=== PATIENT | female | born 2000 | race Caucasian/White ===

== ENCOUNTER 2020-12-18 10:51 | Outpatient (REF) | payer OTHER, SELFPAY ==
[2020-12-18 12:08] LABS: COVID-19 Test Negative (Negative)
== END 2020-12-18 10:52 | disposition home or self-care (01) ==
LOC: HO.EMPCOV 10:51
PROVIDERS: Absent Provider Internal Medicine; PCP Pediatrics; Visit Provider Internal Medicine
DX: Z20.822 Contact with and (suspected) exposure to COVID-19 (principal)
CPT/HCPCS: 36415; 87635

== ENCOUNTER 2021-06-29 15:38 | Outpatient (REF) | payer OTHER, SELFPAY ==
[2021-06-29 16:29] LABS: Influenza A PCR NEGATIVE (Negative); Influenza B PCR NEGATIVE (Negative); Resp Syncy Virus RNA Qual PCR NEGATIVE (Negative); SARS COV2 PCR INHOUSE NEGATIVE (Negative)
== END 2021-06-29 15:39 | disposition home or self-care (01) ==
LOC: HO.LAB 15:38
PROVIDERS: Visit Provider Emergency Medicine
DX: Z20.822 Contact with and (suspected) exposure to COVID-19 (principal)
CPT/HCPCS: 0241U

== ENCOUNTER 2021-07-01 09:45 | Outpatient (REF) | payer OTHER, SELFPAY ==
[2021-07-01 10:43] LABS: Influenza A PCR NEGATIVE (Negative); Influenza B PCR NEGATIVE (Negative); Resp Syncy Virus RNA Qual PCR NEGATIVE (Negative); SARS COV2 PCR INHOUSE NEGATIVE (Negative)
== END 2021-07-01 09:46 | disposition home or self-care (01) ==
LOC: HO.LAB 09:45
PROVIDERS: PCP Pediatrics; Visit Provider Physician Assistant
DX: R53.81 Other malaise (principal); Z20.822 Contact with and (suspected) exposure to COVID-19
CPT/HCPCS: 0241U

== ENCOUNTER 2021-09-22 11:18 | Outpatient (REF) | payer OTHER, SELFPAY ==
--- NOTE | ~2021-09-22 | XR_ITS ---
EXAMINATION: XR FOOT, RIGHT CLINICAL INFORMATION: Swelling and pain COMPARISON: None TECHNIQUE: AP, lateral, and oblique views of the right foot. FINDINGS: The bones and soft tissues are normal. No fracture. Alignment is anatomic. Joint spaces are maintained. XR/XR foot RT min 3V IMPRESSION: Unremarkable right foot.
== END 2021-09-22 11:19 | disposition home or self-care (01) ==
LOC: HO.XRAY 11:18
PROVIDERS: Visit Provider Physician Assistant
DX: R60.0 Localized edema (principal); M79.671 Pain in right foot
CPT/HCPCS: 73630

== ENCOUNTER 2022-07-01 10:37 | Outpatient (REF) | payer OTHER, SELFPAY ==
[2022-07-01 11:45] LABS: Influenza A PCR POSITIVE (Negative); Influenza B PCR NEGATIVE (Negative); Resp Syncy Virus RNA Qual PCR NEGATIVE (Negative); SARS COV2 PCR INHOUSE NEGATIVE (Negative)
== END 2022-07-01 10:38 | disposition home or self-care (01) ==
LOC: HO.LAB 10:37
PROVIDERS: Visit Provider Nurse Practitioner Family
DX: Z20.822 Contact with and (suspected) exposure to COVID-19 (principal); R05.9 Cough, unspecified
CPT/HCPCS: 0241U

== ENCOUNTER 2024-09-23 08:36 | Emergency (ER) | payer OTHER, SELFPAY ==
--- NOTE | ~2024-09-23 | XR_ITS ---
CLINICAL HISTORY: pain unable to put weight 3 view right knee Comparison: None Findings: Along the posterior aspect of the proximal fibula, there is smooth periosteal reaction/beginnings of what appear to be bony callus formation. Fracture lucency is not seen although this raises the possibility of bony reparative changes related to a nondisplaced healing fracture at this site. Is there a history of a recent or subacute timing injury? Correlation is recommended. No significant arthritic change or erosions. No joint effusion. No radiopaque foreign body. IMPRESSION: Along the posterior aspect of the proximal fibula, there is smooth periosteal reaction/beginnings of what appear to be bony callus formation. Fracture lucency is not seen although this raises the possibility of bony reparative changes related to a nondisplaced healing fracture at this site. Is there a history of a recent or subacute timing injury? Correlation is recommended. This document has been electronically signed by: Norma Jesus MD on 09/23/2024 10:24:52
[2024-09-23 08:39] VITALS: BP 132/75; PULSE 75; RESP 16; TEMP 36.4; O2SAT 100; BMI 22.2
--- NOTE | 2024-09-23 08:39 | ED_ITS ---
HPI - General Adult General Chief complaint: Extremity Problem Stated complaint: R knee injury Time Seen by Provider: 09/23/24 08:39 Source: patient Mode of arrival: ambulatory Limitations: no limitations History of Present Illness ED Provider: Shauna Yates PA-C HPI narrative: Patient is a 24 year old assigned female at with no reported medical history presenting to the emergency department today with right knee pain. Patient states that she had a right knee injury 4 years ago that resolved, a few days ago she went running 4 miles and began to have right knee pain. States that she rested the knee and then yesterday ran a 10k and now her right knee is in significant pain. Patient denies any dizziness, lightheadedness, abdominal pain, nausea, vomiting, fever, chills, blurry vision, double vision, loss of vision, chest pain, difficulty breathing, shortness of breath, back pain, night sweats, pain with urination, increased urinary frequency, increased urinary urgency, blood in her urine or stool, syncope or a near syncopal episode, bowel incontinence, bladder incontinence, or any other complaints at this time. Relieving factors: immobilization Exacerbating factors: movement Associated symptoms: denies other symptoms Treatments prior to arrival: other (knee brace) Related Data Allergies Allergy/AdvReac Type Severity Reaction Status Date / Time sulfamethoxazole Allergy Rash Verified 09/23/24 08:42 [From Bactrim] trimethoprim [From Bactrim] Allergy Rash Verified 09/23/24 08:42 Review of Systems Constitutional: Constitutional: Reports no additional constitutional complaints, Denies chills, Denies fever(s) and Denies night sweats Eyes: Eyes: Reports no additional eye complaints, Denies blurry vision, Denies change in vision, Denies diplopia, Denies eye discharge, Denies loss of vision and Denies eye pain ENT: Denies dizziness Cardiovascular: Cardiovascular: Reports no additional cardiovascular complaints, Denies chest pain, Denies lightheadedness, Denies Loss of Consciousness and Denies dyspnea Respiratory: Respiratory: Reports no additional respiratory complaints and Denies dyspnea Gastrointestinal: Gastrointestinal: Reports no additional gastrointestinal complaints, Denies abdominal pain, Denies melena, Denies hematochezia, Denies change in bowel habits and Denies change in stool character Genitourinary: Genitourinary: Denies hematuria, Denies urinary frequency, Denies dysuria, Denies urinary incontinence, Denies urinary hesitancy and Denies urinary urgency Musculoskeletal: Musculoskeletal: Reports no additional musculoskeletal complaints, Denies numbness and Denies tingling Comments: right knee pain Neurologic: Denies dizziness, Denies loss of vision, Denies numbness and Denies tingling Psychiatric: Psychiatric: Reports no additional psychiatric complaints Endocrine: Endocrine: Reports no additional endocrine complaints Hematologic/Lymphatic: Hematologic/Lymphatic: Reports no additional hematologic/lymphatic complaints Allergic/Immunologic: Allergic/Immunologic: Reports no additional allergic/immunologic complaints PMFSH Past Medical History Attestation statement: The following information was validated with the patient. Source: old records reviewed and nursing notes reviewed Social History Social History Advance Directives: No Advance Directives Information Provided: Yes Physical Exam ED Vital Signs: Vital Signs - 24 hr 09/23/24 08:39 09/23/24 10:22 Temperature 97.6 F 97.6 F Pulse Rate 75 75 Respiratory Rate 16 16 Blood Pressure 132/75 132/75 Pulse Oximetry 100 100 Oxygen Delivery Method Room Air Room Air BMI result Body Mass Index 22.2 Const General: cooperative, no acute distress, alert and awake Nutritional Appearance: well nourished Orientation/consciousness: patient oriented x3 Limitations: no limitations HENMT Head: Yes normal to inspection and Yes atraumatic Ears: hearing grossly normal bilaterally and external ears normal General nose exam: Normal external nose present, no nasal discharge noted and no epistaxis Face and sinus: Yes normal facial exam, No abrasion and No laceration Mouth: Normal oral and palatal mucosa present, no drooling and no muffled voice Eyes General: appearance normal, both eyes and all related structures Periorbital: periorbital findings normal Eyelids: Yes eyelids normal Conjunctivae: conjunctivae normal Pupils: Equal, round and reactive pupils present EOM: EOMs intact bilaterally Neck Neck: Yes normal visual inspection, Yes full ROM and Yes no lymphadenopathy Chest Chest palpation & inspection: normal inspection of the chest Resp Effort & Inspection: normal respiratory effort and able to speak in complete sentences GI Inspection: Yes normal to inspection Neuro General: patient oriented x3, moves all extremities and CN's II-XI intact bilaterally Cranial nerves: Yes Equal, round and reactive pupils present Cognition (Neuro): normal cognition Extrem Other: Right knee ROM painful Negative anterior + posterior drawer testes No pain with varus + valgus stress Minimal pain with palpation along the lateral right knee / IT band General: Yes normal to inspection, Yes full ROM and Yes capillary refill normal Psych Appearance: grossly normal Mental Status: mental status grossly normal Affect: normal affect Attitude: cooperative Thought process: Normal thought process present Thought content: Normal thought content present Insight: Good insight present (Psych) Medications Administered Discontinued Medications Generic Name Dose Route Start Last Admin Trade Name Claudia PRN Reason Stop Dose Admin Ketorolac Tromethamine 15 mg 09/23/24 08:57 09/23/24 09:02 Ketorolac Tromethamine 15 Mg/Ml Vial IM 09/23/24 08:58 15 mg ONCE ONE Administration Medical Decision Making Medical Decision Making [facility] Narrative: Patient is a 24 year old assigned female at with no reported medical history presenting to the emergency department today with right knee pain. Patient's physical exam was as noted in the physical exam portion of this note. Patient's right knee x-ray showed no acute process. Patient's clinical presentation is most consistent with IT band pain vs. meniscus injury vs. knee sprain. I explained my physical exam findings as well as all test results to the patient. I answered all questions asked by the patient. Patient was given crutches with crutch instructions and demonstrated proper ability to use them while in the department. I stressed the importance of the patient taking her medication as directed (either prescribed or as the over the counter packaging recommends). I stressed the importance of the patient following up with her primary care provider and an orthopedic provider. I stressed the importance of the patient returning to the emergency department immediately if her symptoms were to worsen or if she were to develop any dizziness, shortness of breath, difficulty breathing, chest pain, blurry vision, loss of vision, nausea, vomiting, abdominal pain, fever, chills, back pain, or any other complaints. Patient verbalized agreement and understanding with this treatment plan and discharge. Differential Diagnosis Differential Diagnoses: The differential diagnosis associated with the presentation includes Right knee pain Right knee sprain Right meniscus injury Right IT band syndrome Admission/Observation Consideration of admission/observation: Escalation of care including admission/observation considered Patient would have been admitted to the hospital had her work up had any findings where hospital admission was appropriate and her clinical presentation warranted hospital admission. Independent Interpretation I performed an independent interpretation of an: Plain X-Ray Interpretation: My interpretation is in agreement with the radiologist's impression of this imaging study. CLINICAL HISTORY: pain unable to put weight 3 view right knee Comparison: None Findings: Along the posterior aspect of the proximal fibula, there is smooth periosteal reaction/beginnings of what appear to be bony callus formation. Fracture lucency is not seen although this raises the possibility of bony reparative changes related to a nondisplaced healing fracture at this site. Is there a history of a recent or subacute timing injury? Correlation is recommended. No significant arthritic change or erosions. No joint effusion. No radiopaque foreign body. IMPRESSION: Along the posterior aspect of the proximal fibula, there is smooth periosteal reaction/beginnings of what appear to be bony callus formation. Fracture lucency is not seen although this raises the possibility of bony reparative changes related to a nondisplaced healing fracture at this site. Is there a history of a recent or subacute timing injury? Correlation is recommended. This document has been electronically signed by: Norma Jesus MD on 09/23/2024 10:24:52 Dictated By: Norma Jesus MD Signed By: Electronically signed by Norma Jesus MD 09/23/24 1025 Radiology Impression Discussion of test interpretation with radiology: I have reviewed the r adiologist's reading. Discharge Plan Discharge Clinical Impression: Right knee sprain Patient Disposition: Home, Self-Care Instructions: Knee Sprain (DC), Crutch Instructions (ED) Additional Instructions: Your exam is most consistent with a sprain vs. meniscus injury vs. IT band overuse. Continue using your OTC brace and crutches as needed. Follow up with your primary care provider and the orthopedic team. Return to the emergency department immediately if your symptoms worsen or if you develop any numbness, tingling, dizziness, shortness of breath, difficulty breathing, chest pain, blurry vision, loss of vision, nausea, vomiting, abdominal pain, fever, chills, back pain, or any other complaints. Please see the information below about our Patient Portal. If you are not yet enrolled in the [facility] Patient Portal, you will receive an enrollment email invitation following your visit to any [facility] setting. You may also self-enroll in the Patient Portal by visiting our website: [email or web address] The following information is required to access the Patient Portal: - Your [facility] Medical Record Number - Your personal home email address (must match what is in your electronic medical record, Registration staff can assist with this) - Name - Date of Capabilities of the Patient Portal: - Message some providers - View upcoming appointments - Access your health summary, medical history, and visit history - View current conditions and allergies - View procedure and lab results - View your medications, including guidelines, side effects, and precautions - Complete pre-appointment questionnaires requested by your provider - Ready summary reports of your office visits and procedures To access the Patient Portal Mobile Lynne, follow these directions: - Search in[employer]Depth in the [employer] Store or [employer] Store - Download the Lynne - Search for [facility] - Enter your login/password Referrals: [facility] Family Medicine [Provider Group] (Call to establish and follow up with a primary care provider. If you already have a primary care provider, please f ollow up with them.) [facility] Primary [facility], [place] [Provider Group] (Call to establish and follow up with a primary care provider. If you already have a primary care provider, please follow up with them.) [facility],[place] [Provider Group] (Call to establish and follow up with a primary care provider. If you already have a primary care provider, please follow up with them.) [facility] [Provider Group] (Call to establish and follow up with a primary care provider. If you already have a primary care provider, please follow up with them.) [facility] Orthopedic Surgeons [Provider Group] (Call to establish and follow up with the orthopedic team. ) Interventions: ED Discharge Assessment Last Done: 09/23/24 10:22 Discharge Date/Time: 09/23/24 10:23 Print Language: Indian
[2024-09-23] MEDS: Ketorolac Tromethamine 15 MG/ML VIAL IM (09:02)
--- OUTSIDE RECORDS SUMMARY | 2024-09-23 09:12 | XMS_ITS | Clinical Summary ---
Author Organization [facility] Address [address] [place] [id number] Phone Care Team Providers Care Warehouse Material Handler Name Role Phone Cooper Acevedo MD Primary Care Provider [phone] Allergies No known active allergies Medications Clindamycin Phos-Benzoyl Perox gel APPLY TOPICALLY TO ACNE ON FACE QAM 1 9 Active CLINDAMYCIN-BENZO YL PER-CLEANS EX Act hosea LILETTA, 52 MG, 19.5 MCG/DAY intrauterine device 0 9 Active tretinoin 0.025 % cream APPLY A PEA-SIZED AMOUNT TO FACE Q OTHER NIGHT WORKING UP TO NIGHTLY TOLERATED 2 9 Active Immunizations Immunization Administration Dates Next Due DTaP 5 02/18/2004, 1,1999,06/16,1999 HPV, Quadrivalent 09/13/2013,05/10/2013,03/09/20 13 Hep A, ped/adol 04/15/2016,03/29/2014 Hep B, ped/adol 08/24/2000,03/02/2000,1999 Hib (PRP-T) 05/25/2000, 0,1999,04/17 IPV 02/18/2004, 1,1999,04/17 Influenza, injectable, quadr ivalent, preservative free 04/15/2016 Influenza, intranasal, quadrivalent 04/02/2015,0 03/29/2014 MMR 02/18/2004,03/02/2000 Meningococcal Conj (Menactra) MCV4P 04/15/2016,0 08/07/2010 Pneumococcal Conjugate 05/25/2000,03/02/2000 Tdap 08/07/2010 Varicella 08/07/2010,03/02/2000 Family History Medical History Relation Name Comments No Known Problems Father No Known Problems Maternal Grandfather No Known Problems Maternal Grandmother No Known Problems Mother No Known Problems Paternal Grandfather No Known Problems Paternal Grandmother No Known Problems Sister Relation Name Status Comments Father Maternal Grandfather Maternal Grandmother Mother Paternal Grandfather Paternal Grandmother Sister Social History Tobacco Use Types Packs/Day Years Used Date Smoking Tobacco: Never Comments:Never Smoker Alcohol Use Standard Drinks/Week Comments No 0 (1 standard drink = 0.6 oz pur e alcohol) Hunger/Food Answer Date Recorded In the last 12 months, did y ou or your family ever eat less than you felt you should because there wasn't enough money for food? No 12/22/2019 Stable Housing Answer Date Recorded Are you worried that in the next 2 months you may not have stable housing? No 12/22/2019 Transportation Concerns Answer Date Rec orded In the last 12 months, have you or your family ever had to go without healthcare because you didn't have a way to get there? No 12/22/2019 Hazards in Home Answer Date Recorded Think about the place you li ve. Do you have problems with any of the following? Pests (mice or roaches), mold, no/not working smoke detectors, water leaks, no window guards. No 2019 Financing Utilities Answer Date Recorde d In the last 12 months, has t he electric, gas, oil, or water company threatened to shut off your services in your home? No 12/22/2019 Safety at Home Answer Date Recorded Are you or your family worried about feeling saf e in your home? No 12/22/2019 Outside Support Answer Date Recorded Do you feel that you need mo re support from other people or programs to help you care for yourself or your family? No 12/22/2019 Understanding Health Concerns Answer Da te Recorded Do you need help understandi ng your or your child's healthcare needs (diagnosis, medications, plan, etc.)? No 12/22/2019 Financing Health Concerns Answer Date R ecorded In the last 12 months, was t here a time when your child needed to see a doctor or get medications or supplies but could not because of cost? No 12/22/2019 Missing School or Work Answer Date Phil rded Did you or your child miss s chool or work because of a health problem that could have been avoided? No 12/22/2019 Comments Unknown Sex and Gender Information Value Date Recorded Sex Assigned at Not on file Legal Sex Female 6:34 PM EDT Gender Identity Not on file Sexual Orientation Straight 12/24/2019 9: 34 AM EDT Last Filed Vital Signs Vital Sign Reading Time Taken Comments Blood Pressure 110/70 12/21/2018 4:43 PM EDT Pulse 72 12/21/2018 4:43 PM EDT Temperature 36.6 ??C (97.8 ??F) 12/21/2018 4:43 PM ED T Respiratory Rate - - Oxygen Saturation - - Inhaled Oxygen Concentration - - Weight 67.4 kg (148 lb 11.2 oz) 12/21/2018 4:43 PM EDT Height 167 cm (5' 5.75 ) 12/21/2018 4:43 PM EDT Body Mass Index 24.18 12/21/2018 4:43 PM EDT Plan of Treatment Health Maintenance Due Date Last Done Comments DTaP,Tdap,and Td Vaccines (7 - Td or Tdap) 08/07/2020 08/07/2010, 02/18/2004, 08/24/2000, Additional history exists Influenza Vaccines (#1) 2024 04/10/20, 04/15/2016, 04/02/2015, Additional history exists COVID-19 Vaccine ( season) 2024 05/18/2021, 09/20/2020, 08/23/2020 HIB Vaccines Completed 05/25/2000, 08/04, 1999, Additional history exists Pneumococcal Vaccine Completed 05/25/2000, 03/02/20 Hepatitis B Vaccines Completed 08/24/2000, 03/02/2000, 1999 IPV Vaccines Completed 02/18/2004, 08/05, 1999, Additional history exists MMR Vaccines Completed 02/18/2004, 03/02/2000 Varicella Vaccines Completed 08/07/2010, 03/02/2000 HPV Vaccines Completed 09/13/2013, 01/2013, 03/09/2013 Hepatitis A Vaccines Completed 04/15/2016, 03/29/20 14 Meningococcal Vaccine Completed 04/15/2016, 011 Men B Vaccine Aged Out No longer elig macariole based on patient's age to complete this topic Procedures * Due to [place] law, this organization might not be sharing sensitive test results. Procedure Name Priority Date/Time Associated Diagnosis Comments CHLAMYDIA AND GONORRHEA, AMPLIFIED Routine 12/21/2018 4:56 PM EDT Well adult exam from Last 3 Months or Most Recently Relevant to Health Maintenance Results * Due to [place] law, this organization might not be sharing sensitive test results. * Chlamydia and Gonorrhea, Amplified (12/21/2018 4:56 PM EDT) Chlamydia Trachomatis, DNA Probe NEGATIVE (NEG) [facility] Comment: No Chlamydia Trachomatis RNA detected in this patient's sample ? (REFERENCE RANGE/NORMAL VALUE: NOT DETECTED) ? Note: This test uses optomechanical engineer- mediated amplification method to detect rRNA from C. Trachomatis URINE GC AMP PROBE NEGATIVE (NEG) [facility] Comment: No Neisseria Gonorrhoeae RNA detected in this patient's sample ? (REFERENCE RANGE/NORMAL VALUE: NOT DETECTED) ? NOTE: This test uses optomechanical engineer-mediated amplification method to detect rRNA from N.Gonorrhoeae. A negative result does not preclude infection. In the case of a negative urine result, testing of an endocervical(female) or urethral (male) specimen is recommended if there is high clinical suspicion of infection. Due to very high sensitivity of Nucleic Acid Amplification Test, false positive results may occur. Therefore, specimen handling is extremely important. In patients in whom the disease is unlikely, additional sample for testing should be considered after an initial positive result. The performance characteristics of this test have not been evaluated in children. The Aptima Combo2 assay is not intended for the evaluation of suspected sexual abuse or for other medico-legal indications. The ordering provider should assess if the patient had consensual sex without risk of sexual abuse. Consult the [facility] if needed. Contact phone number . Therapeutic failure or success cannot be determined with the Aptima Combo2 assay since nucleic acid may persist following appropriate antimicrobial therapy. The Centers for Disease Control and Prevention (CDC) recommends confirmatory retesting using culture or a different nucleic acid amplification test when positive results occur, if indicated. Testing performed or reported by [facility], a Service of [facility], [address] [place] [address] Urine 12/21/2018 4:56 PM EDT 12/21/2018 11:19 PM EDT us Ana Rosa Parekh DO LAB MICROBIOLOGY - GENERAL ORDE MIKEL Final Result [facility] from Last 3 Months or Most Recently Relevant to Health Maintenance Insurance [place] [id number] Care Teams Warehouse Material Handler Relationship Specialty Start Date End Date Cooper Acevedo MD [address] [place] [address] [place] [id number] PCP - General 11/09/17
--- OUTSIDE RECORDS SUMMARY | 2024-09-23 09:12 | XMS_ITS | Encounter Summary ---
Author Organization [facility] Address [address] [place] [address] Phone Care Team Providers Care Qc Scientist Name Role Phone Cooper Acevedo MD Primary Care Provider [phone] Encounter Details Date Type Department Care Team (Late st Contact Info) Description 08/10/2012 Conversion Encounter [facility] [address] [place] [address] [place] [address] Social History Tobacco Use Types Packs/Day Years Used Date Smoking Tobacco: Never Comments:Never Smoker Comments Unknown Sex and Gender Information Value Date Recorded Sex Assigned at Not on file Legal Sex Female 6:34 PM EDT Gender Identity Not on file Sexual Orientation Straight 12/24/2019 9: 34 AM EDT documented as of this encounter Plan of Treatment Not on file documented as of this encounter Visit Diagnoses Not on filedocumented in this encounter Care Teams Qc Scientist Relationship Specialty Start Date End Date Cooper Acevedo MD [address] [place] [address] [place] [id number] PCP - General 11/09/17 documented as of this encounter
--- NOTE | 2024-09-23 09:52 | PC.NURSE ---
Pt able to demonstrate correct crutches ambulation. Awaiting consults at this time, Ice given to patient with good effect.
[2024-09-23 10:22] VITALS: BP 132/75; PULSE 75; RESP 16; TEMP 36.4; O2SAT 100
== END 2024-09-23 10:23 | disposition home or self-care (01) ==
PROVIDERS: Emergency Provider Emergency Medicine; PCP Pediatrics
DX: S83.91XA Sprain of unspecified site of right knee, initial encounter (principal); X50.3XXA Overexertion from repetitive movements, initial encounter; Y93.02 Activity, running; Y92.9 Unspecified place or not applicable; Y99.9 Unspecified external cause status; M25.561 Pain in right knee
CPT/HCPCS: 73564; 96372; 99284; J1885

== ENCOUNTER → 2024-09-23 08:45 | Outpatient (BNV) | payer OTHER, SELFPAY | PROVIDERS: Emergency Provider Emergency Medicine; PCP Pediatrics; Visit Provider Radiology Diagnostic Radiology | DX: S82.101D Unspecified fracture of upper end of right tibia, subsequent encounter for closed fracture with routine healing (principal) | CPT/HCPCS: 73564 ==

== ENCOUNTER 2024-09-26 15:27 | Outpatient (AMB) | payer OTHER, SELFPAY ==
--- NOTE | 2024-09-26 15:32 | MHC.PC.OV ---
Vital Signs 09/26/24 15:37 Height 5 ft 6.75 in Weight 137 lb BMI 21.6 BP 102/60 Blood Pressure Location Rt brachial Pulse 56 Pulse Source Pulse Oximeter Temp 98.0 F Pulse Oximetry (%) 100 Intake Visit Reasons: s/p knee injury Intake Note: no other issues Is last menstrual period known: Yes Post menopausal: No Patient : No Allergies sulfamethoxazole [From Bactrim] Allergy (Verified 09/26/24 16:04) Rash trimethoprim [From Bactrim] Allergy (Verified 09/26/24 16:04) Rash Medication List - Last Reconciled 09/26/24 by Chata Burleson PA-C ketorolac 10 mg PO Q8H PFSH Medical History (Updated 09/26/24 @ 16:07 by Chata Burleson PA-C) IUD (intrauterine device) in place History of cyst of breast Establishing care with new doctor, encounter for Atypical syncope Abnormal x-ray of knee Knee injury Social History Patient Tobacco Use Status: Never used Tobacco e-Cigarette/Vaping Use: Never Used Second Hand Smoke Exposure: No Cognitive needs: No Hearing needs: No Vision needs: No Female Reproductive History Menstrual control method: progestin IUCD Questionnaire PHQ-9 Over the last 2 weeks, how often have you been bothered by any of the following problems? 1. Little interest or pleasure in doing things: not at all 2. Feeling down, depressed, or hopeless: not at all 3. Trouble falling or staying asleep, or sleeping too much: not at all 4. Feeling tired or having little energy: not at all 5. Poor appetite or overeating: not at all 6. Feeling bad about yourself - or that you are a failure or have let yourself or your family down: not at all 7. Trouble concentrating on things, such as reading the newspaper or watching television: not at all 8. Moving or speaking so slowly that other people could have noticed. Or the opposite - being so fidgety or restless that you have been moving around a lot more than usual: not at all 9. Thoughts that you would be better off or of hurting yourself in some way: not at all Total score: 0 Depression Screening Interpretation: Negative Depression Screening Done: Yes 12273 - PHQ-9 Billing: Yes Source: Developed by Drs. Juan Bro, Monica Junior, Stone Ortiz and colleagues, with an educational yusuf from [employer]. Thrive Questionnaire I am a: Patient What is your living situation today?: I have a steady place to live Within the past 12 months, did the food you bought not last and you didn't have the money to get more?: Never true Within the past 12 months, did you worry whether your food would run out before you got money to buy more?: Never true Do you have trouble paying for medicines?: No Do you have trouble getting transportation to medical appointments?: No Do you have trouble paying your heating and electricity bill?: No Do you have trouble taking care of your child, family member or friend?: No Do you have trouble with day-to-day activities such as bathing, preparing meals, shopping, managing finances, etc.?: No Are you currently unemployed and looking for a job?: No Are you interested in more education?: No THRIVE Score: 0 AUDIT C Alcohol Use Questionnaire (AUDIT-C) 1. How often do you have a drink containing alcohol?: 2-3 times a week 2. How many drinks containing alcohol do you have on a typical day when you are drinking?: 1 or 2 3. How often do you have six or more drinks on one occasion?: Less than monthly Total Score: 4 Score Reviewed/Action Taken: No LESVIA-7 AMB Questionnaire LESVIA-7 Feeling nervous, anxious, or on edge: 0 = Not at all Not being able to stop or control worryin = Not at all Worrying too much about different things: 0 = Not at all Trouble relaxin = Not at all Being so restless that it is hard to sit still: 0 = Not at all Becoming easily annoyed or irritable: 0 = Not at all Feeling afraid as if something awful might happen: 0 = Not at all Total LESVIA-7 score (0-4 normal; 5-9 mild; 10-14 moderate; 15-21 severe): 0 Source: Developed by Monica Livingston Kurt Kroenke and colleagues, with an educational yusuf from [employer]. LESVIA-7 Assessment Billing LESVIA-7 Assessment Tool: LESVIA-7 Assessment 05314 Physical exam (Primary Care) Vital Signs: Last Vital Signs Temp 98.0 F 09/26/24 15:37 Pulse 56 09/26/24 15:37 BP 102/60 09/26/24 15:37 Pulse Ox 100 09/26/24 15:37 Care Plan Goal for BP management: <130/80 BMI result Body Mass Index 21.6 normal bmi Tobacco/Smoking Status: Tobacco use Status Patient Tobacco Use Status Never used Tobacco 09/26/24 16:10 e-Cigarette/Vaping Use Never Used 09/26/24 16:10 PHQ-9: PHQ-9 Score PHQ-9: Total score 0 09/26/24 16:10 Depression Screening Interpretation: Negative Coding Level of Care Code New Pt Level 4 (51204) Complex EM visit Add On G2211 Diagnoses Establishing care with new doctor, encounter for Z76.89 Abnormal x-ray of knee R93.6 Knee injury S89.90XA IUD (intrauterine device) in place Z97.5 Atypical syncope R55 Additional Codes LESVIA-7 Assessment Billing - LESVIA-7 Assessment Tool: LESVIA-7 Assessment 66123 ([id number]) PHQ-9 - 54426 - PHQ-9 Billing: Yes ([id number]) Assessment & Plan Assessment & Plan (1) Establishing care with new doctor, encounter for: Code(s): Z76.89 - Persons encountering health services in other specified circumstances Category: Medical (2) Abnormal x-ray of knee: Code(s): R93.6 - Abnormal findings on diagnostic imaging of limbs Category: Medical Plan: X-ray findings require MRI analysis to assess any further changes. Coordination with orthopedics is needed for continued management and oversight. (3) Knee injury: Code(s): S89.90XA - Unspecified injury of unspecified lower leg, initial encounter Category: Medical Plan: An MRI is required for further evaluation of possible internal knee injury. Follow-up with orthopedics has been scheduled post-imaging. Prescribed oral Toradol for pain management, avoiding concurrent NSAID use. (4) IUD (intrauterine device) in place: Code(s): Z97.5 - Presence of (intrauterine) contraceptive device Category: Medical Plan: Condition is chronic and stable continue to monitor. (5) Atypical syncope: Code(s): R55 - Syncope and collapse Category: Medical Plan: Patient with atypical syncopal episodes. She has not had 1 in a few years although will get a baseline EKG. If patient develops syncope in the near future she will call us and we will do further workup. Condition is chronic and stable continue to monitor. Plan Plan Patient was informed and verbally consented to the use of an ambient scribe for clinic note documentation during this visit. 1. Knee Joint Pain An MRI is required for further evaluation of possible internal knee injury. Follow-up with orthopedics has been scheduled post-imaging. Prescribed oral Toradol for pain management, avoiding concurrent NSAID use. 2. Allergy status to sulfonamides Documented allergic reaction to Bactrim; future prescriptions will avoid sulfa drugs. 3. Periosteal Reaction Of Fibula X-ray findings require MRI analysis to assess any further changes. Coordination with orthopedics is needed for continued management and oversight. 4. Suspected Meniscal Or Ligament Injury An MRI will clarify suspected meniscal or ligament injury, with a follow-up orthopedic evaluation planned. Therapy adjustments will follow imaging results. 5. Uterine Intrauterine Device Iud Use Current IUD use is effective; patient to discuss potential future removal with gynecology. 6. History Of Breast Cysts No current cyst complaints; previous issues resolved with Bactrim. Monitoring and preventive strategies continued with gynecological support. Discussion Notes During the consultation, I discussed the likely diagnosis of knee joint pain exacerbated by recent physical activity, emphasizing the importance of conducting an MRI for further clarification of suspected meniscal or ligament damage. I detailed the benefits of prompt imaging and orthopedic follow-up to enable effective management and alleviate discomfort. We talked through the risks and benefits of current pain management with Toradol as an oral medication, highlighting the need to avoid NSAID use simultaneously. Additionally, we reviewed her previous allergy to Bactrim, ensuring no further exposure to similar drugs. Discussions of family planning include potential future removal of her IUD. Plans are made for her to return post-MRI for further evaluation and treatment alignment. Orders: Orders MR knee RT wo con 09/26/24 R93.6 - Abnormal findings on diagnostic imaging of limbs, S89.90XA - Unspecified injury of unspecified lower leg, initial encounter Comprehensive [place]. Panel Fast 09/26/24 Z00.00 - Encounter for general adult medical examination without abnormal findings C Reactive Protein 09/26/24 Z00.00 - Encounter for general adult medical examination without abnormal findings Hemoglobin A1c 09/26/24 Z00.00 - Encounter for general adult medical examination without abnormal findings Ferritin 09/26/24 D64.9 - Anemia, unspecified IRON PROFILE 09/26/24 D64.9 - Anemia, unspecified Lipid Panel 09/26/24 Z00.00 - Encounter for general adult medical examination without abnormal findings Liver Panel 09/26/24 Z.00 - Encounter for general adult medical examination without abnormal findings Vitamin B12 and Folate 09/26/24 Z00.00 - Encounter for general adult medical examination without abnormal findings Vitamin D 25-OH Total 09/26/24 Z.00 - Encounter for general adult medical examination without abnormal findings Zinc 09/26/24 Z00.00 - Encounter for general adult medical examination without abnormal findings Vitamin A 09/26/24 Z. - Encounter for general adult medical examination without abnormal findings Vitamin B1 09/26/24 Z00.00 - Encounter for general adult medical examination without abnormal findings Complete Blood Count Auto Diff 09/26/24 Z00. - Encounter for general adult medical examination without abnormal findings Magnesium 09/26/24 Z00.00 - Encounter for general adult medical examination without abnormal findings TSH reflex Free T4 09/26/24 Z00.00 - Encounter for general adult medical examination without abnormal findings Prolactin 09/26/24 Z00.00 - Encounter for general adult medical examination without abnormal findings Progesterone 09/26/24 Z00.00 - Encounter for general adult medical examination without abnormal findings Estrogen 09/26/24 Z00.00 - Encounter for general adult medical examination without abnormal findings Testosterone, Total 09/26/24 Z00. - Encounter for general adult medical examination without abnormal findings ECG 12 lead EKG 09/26/24 R55 - Syncope and collapse Medications: New ketorolac maximum total duration of 5 days from all oral, intranasal, or parenteral formulations. First dose given in the ER by IM. 10 mg PO Q8H 20 tabs 1RF Patient Instructions: Patient Instructions - Schedule an appointment for an MRI of your knee at the instructed facility. - Continue prescribed Toradol for pain, ensuring not to mix with other NSAIDs or painkillers. - Maintain follow-up with your homeland security program specialist as arranged. - Avoid future use of Bactrim due to allergy indicated by rash. - Consult your underground drill operator for any IUD-related concerns and future family planning options. Scribe Plan - Not visible on output: History of Present Illness The patient is a 24-year-old female presenting with knee joint pain. She has a history of a [place], leading to occasional aching with overuse. A notable exacerbation occurred last Tuesday after a four-mile run, with severe pain disabling her ability to walk and subsequent stiffness after additional exercise. An X-ray revealed changes in the fibula indicative of past injury; an MRI is recommended for further assessment. She has no history of regular pain except during acute exacerbations. Social History - Recently returned from living in [place]; dislikes continuous warm weather. - Engages in regular physical activity but does not frequently run. - Has a sister with close familial ties. - Currently using Liletta IUD for contraception; has been consistently sexually active. - Limited medication use; avoids pain medications unless in severe pain. Review of Systems - Musculoskeletal: Reports knee pain and stiffness following exercise; denies consistent joint swelling or additional joint pain. 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 - Reproductive: Reports increased menstrual bleeding possibly related to long-term IUD use. Physical Exam Appearance: Alert. Oriented X3. No acute distress. Head: Normal external exam. Normocephalic. Atraumatic. Eyes: Pupils are equal, round, and reactive to light. Extraocular movements intact. Conjunctiva and sclera normal. Eyelids normal. Throat: Pharynx normal. Uvula midline. Moist mucous membranes. Neck: Normal inspection. Neck supple. Full range of motion. Cardiovascular: Normal heart rate and rhythm. Heart sound normal. No murmurs noted. Pulses normal throughout. Respiratory: No respiratory distress. Painless inspiration. Breath sounds normal. No wheezes/rales/rhonchi noted. Chest nontender. No accessory muscle usage noted or decreased air movement noted. Back: Full range of motion noted. Skin: Skin warm and dry. Normal skin color. Normal skin turgor. No rashes/lesions/lacerations noted. Extremities: Right knee exhibits discomfort and swelling mainly in the medial and lateral aspect of the knee. There is no obvious joint effusion. Patient has good range of motion. Patient walking with crutches and knee brace. Otherwise all other extremities exhibit normal range of motion nontender. There is no lower extremity edema or calf tenderness noted. Neuro: Oriented X 3. No motor deficit. No sensory deficit. Reflexes normal. Results - X-ray: Along the posterior aspect of the proximal fibula, there is smooth periosteal reaction/beginnings of what appear to be bony callus formation. Fracture lucency is not seen although this raises the possibility of bony reparative changes related to a nondisplaced healing fracture at this site. Is there a history of a recent or subacute timing injury? Correlation is recommended.
[2024-09-26 15:37] VITALS: BP 102/60; PULSE 56; TEMP 36.7; O2SAT 100; BMI 21.6
--- OUTSIDE RECORDS SUMMARY | 2024-09-26 18:29 | XMS_ITS | Clinical Summary ---
Author Organization [facility] Address [address] [place] [address] Phone Care Team Providers Care Hvac Operations Technician Name Role Phone Cooper Acevedo MD Primary Care Provider [phone] Allergies No known active allergies Medications Clindamycin [...] complete this topic Procedures * Due to [place] GoGarden law, this organization might not be sharing sensitive test results. Procedure Name Priority Date/Time Associated Diagnosis Comments CHLAMYDIA AND GONORRHEA, AMPLIFIED Routine 12/21/2018 4:56 PM EDT Well adult exam from Last 3 Months or Most Recently Relevant to Health Maintenance Results * Due to [place] GoGarden law, this organization might not be sharing sensitive test results. * Chlamydia and Gonorrhea, Amplified (12/21/2018 4:56 PM EDT) Chlamydia Trachomatis, DNA Probe NEGATIVE (NEG) [facility] Comment: No Chlamydia Trachomatis RNA detected in this patient's sample ? (REFERENCE RANGE/NORMAL VALUE: NOT DETECTED) ? Note: This test uses head grinder- mediated amplification method to detect rRNA from C. Trachomatis URINE GC AMP PROBE NEGATIVE (NEG) [facility] Comment: No Neisseria Gonorrhoeae RNA detected in this patient's sample ? (REFERENCE RANGE/NORMAL VALUE: NOT DETECTED) ? NOTE: This test uses head grinder-mediated amplification method to detect rRNA from N.Gonorrhoeae. [...] without risk of sexual abuse. Consult the [facility] if needed. Contact phone number . Therapeutic failure or success cannot be determined with the Aptima Combo2 assay since nucleic acid may persist following appropriate antimicrobial therapy. The Centers for Disease Control and Prevention (CDC) recommends confirmatory retesting using culture or a different nucleic acid amplification test when positive results occur, if indicated. Testing performed or reported by [facility], a Service of [facility], [address] [place] [address] Urine 12/21/2018 4:56 PM EDT 12/21/2018 11:19 PM EDT us Ana Rosa Parekh DO LAB MICROBIOLOGY - GENERAL ORDE MIKEL Final Result [facility] from Last 3 Months or Most Recently Relevant to Health Maintenance Insurance [facility] [id number] Care Teams Hvac Operations Technician Relationship Specialty Start Date End Date Cooper Acevedo MD [address] [place] [address] [place] [address] PCP - General 11/09/17
--- OUTSIDE RECORDS SUMMARY | 2024-09-26 18:29 | XMS_ITS | Encounter Summary ---
Author Organization [facility] Address [address] [place] [address] Phone Care Team Providers Care Lay Out Drafter Name Role Phone Cooper Acevedo MD Primary Care Provider [phone] Encounter Details Date Type Department Care Team (Late st Contact Info) Description 08/10/2012 Conversion Encounter [facility] [address] [place] [address] [place] [address] Social History Tobacco Use Types Packs/Day Years [...] on filedocumented in this encounter Care Teams Lay Out Drafter Relationship Specialty Start Date End Date Cooper Acevedo MD [address] [place] [address] [place] [address] PCP - General 11/09/17 documented as of this encounter
== END 2024-09-26 16:09 | disposition home or self-care (01) ==
LOC: HO.HMCSH 15:27
PROVIDERS: PCP Internal Medicine; Visit Provider Physician Assistant Medical
DX: Z76.89 Persons encountering health services in other specified circumstances (principal); R93.6 Abnormal findings on diagnostic imaging of limbs; S89.90XA Unspecified injury of unspecified lower leg, initial encounter; Z97.5 Presence of (intrauterine) contraceptive device; R55 Syncope and collapse

== ENCOUNTER → 2024-09-26 15:27 | Outpatient (BNVA) | payer OTHER, SELFPAY | PROVIDERS: PCP Internal Medicine; Visit Provider Physician Assistant Medical | DX: Z76.89 Persons encountering health services in other specified circumstances (principal); R93.6 Abnormal findings on diagnostic imaging of limbs; S89.90XA Unspecified injury of unspecified lower leg, initial encounter; R55 Syncope and collapse; Z97.5 Presence of (intrauterine) contraceptive device; X58.XXXA Exposure to other specified factors, initial encounter; Y93.9 Activity, unspecified; Y92.9 Unspecified place or not applicable; Y99.9 Unspecified external cause status | CPT/HCPCS: 96127 ==

== ENCOUNTER 2024-09-29 13:07 | Outpatient (REF) | payer OTHER, SELFPAY ==
[2024-09-29 15:45] LABS: MANUAL DIFF FLAG NO
[2024-09-29 15:59] LABS: Basophils Absolute Auto 0.1 X10*3/uL (0.0-0.2); Basophils Percent Auto 0.8 % (0-2); Eosinophils Percent Auto 0.7 % (0-4); Hematocrit 38.1 % (37.0-47.0); Hemoglobin 13.3 g/dl (12.0-16.0); Imm Gran Abs Auto 0.01 X10*3/uL (0.00-0.03); Imm Gran Pct Auto 0.2 % (0.0-0.4); Lymphocytes Absolute Auto 2.1 X10*3/uL (1.2-4.9); Lymphocytes Percent Auto 35.8 % (20-40); Mean Corpuscular HGB Conc 34.9 g/dl (31.0-35.0); Mean Corpuscular Hemoglobin 31.8 pg (27.0-33.0); Mean Corpuscular Volume 91.1 fL (80.0-98.0); Mean Platelet Volume 9.4 fL (9.4-12.3); Monocytes Absolute Auto 0.4 X10*3/uL (0.1-1.2); Neutrophils Absolute Auto 3.4 x10*3/uL (2.0-8.3); Neutrophils Percent Auto 56.5 % (45-73); Platelet Count 225 X10*3/uL (160-400); Red Blood Count 4.18 X10*6/uL (4.20-5.50); Red Cell Distribution Width 12.4 % (11.0-16.0)
[2024-09-29 16:22] LABS: Alanine Aminotransferase 28 U/L (0-31); Albumin Level 4.4 g/dL (3.5-5.0); Alkaline Phosphatase 51 U/L (39-117); Anion Gap 9 (12-20); Aspartate Amino Transferase 26 U/L (5-31); Bilirubin Direct 0.2 mg/dL (0.0-0.5); Bilirubin Total 0.6 mg/dL (0.0-1.0); Blood Urea Nitrogen 11 mg/dL (9-16); C Reactive Protein < 0.04 mg/dL (< or = 0.50); Calcium 9.3 mg/dL (8.4-10.2); Carbon Dioxide 28 mmol/L (22-29); Chloride 106 mmol/L (96-108); Cholesterol 153 mg/dL (<200); Estimated Glomerular Filt Rate > 60; Glucose Fasting 82 mg/dL (60-99); HDL Cholesterol 60 mg/dL (>40); Iron 181 mcg/dL (30-160); LDL Cholesterol Calculated 79 mg/dL (<100); Magnesium 1.9 mg/dL (1.6-2.6); Percent Iron Saturation 68 % (15-50); Potassium 3.9 mmol/L (3.3-5.1); Sodium 139 mmol/L (135-145); Total Iron Binding Capacity 266 mcg/dL (228-428); Triglycerides 73 mg/dL (<150); Unsaturated Iron Binding 85 ug/dL
[2024-09-29 16:34] LABS: Ferritin 151 ng/mL (10-122); TSH reflex Free T4 0.69 uIU/mL (0.32-4.0)
[2024-09-29 16:48] LABS: Folate 13.6 ng/mL (> or = 4.0); Vitamin B12 478 pg/mL (200-900)
[2024-09-30 06:24] LABS: Estimated Average Glucose 91 mg/dL; Hemoglobin A1c % 4.8 % (<6.0)
[2024-10-01 17:59] LABS: Prolactin 7.6 ng/mL
[2024-10-04 03:33] LABS: Zinc 66 mcg/dL (60-130)
[2024-10-05 15:44] LABS: Estrogen 162 pg/mL
[2024-10-05 20:58] LABS: Testosterone, Total 27 ng/dL (2-45)
[2024-10-10 20:14] LABS: Progesterone 2.7 ng/mL
== END 2024-09-29 13:08 | disposition home or self-care (01) ==
LOC: HO.HMGCLDS 13:07
PROVIDERS: PCP Physician Assistant Medical; Visit Provider Physician Assistant Medical
DX: Z00.00 Encounter for general adult medical examination without abnormal findings (principal); D64.9 Anemia, unspecified; Z13.6 Encounter for screening for cardiovascular disorders; Z13.1 Encounter for screening for diabetes mellitus
CPT/HCPCS: 36415; 80053; 80061; 80076; 82248; 82306; 82607; 82672; 82728; 82746; 83036; 83540; 83735; 84144; 84146; 84403; 84443; 84630; 85025; 86140

== ENCOUNTER 2024-10-02 19:09 | Outpatient (REF) | payer OTHER, SELFPAY ==
--- NOTE | ~2024-10-02 | MR_ITS ---
CLINICAL HISTORY: S89.90XA - Unspecified injury of unspecified lower leg, initial encounter MR right knee without intravenous contrast Comparison: X-ray of the right knee from 09/23/2024 Findings: Anterior cruciate ligament is intact. Posterior cruciate ligament is intact. No tear of the medial meniscus. No tear of the lateral meniscus. Imaged physis (growth plates) remain minimally open. Small effusion present. Small bone islands including dorsal aspect of the medial tibial plateau. Mild marrow including distal femur in this noncontrast study. Extensor mechanism is intact. Lateral positioning and lateral tilt of the patella as can be associated with patellofemoral stress syndrome. With minimal cartilage signal and/or chondromalacia of the medial patellar facet. No osteochondral lesion or defined cartilage defect of the medial compartment or lateral compartment at this time. Lateral collateral ligament complex and medial collateral ligament complex are intact. IMPRESSION: 1. No cruciate ligament tear. 2. No meniscus tear. 3. Small effusion present. 4. Mild lateral positioning of the patella as can be associated with patellofemoral tracking syndrome. This document has been electronically signed by: Rudy Nieves MD on 10/02/2024 20:16:37
--- OUTSIDE RECORDS SUMMARY | 2024-10-02 19:16 | XMS_ITS | Encounter Summary ---
Author Organization [facility] Address [address] [place] [address] Phone Care Team Providers Care Gas Welder Apprentice Name Role Phone Cooper Acevedo MD Primary Care Provider [phone] Encounter Details Date Type Department Care Team (Late st Contact Info) Description 08/10/2012 Conversion Encounter [facility] [address] [place] [address] Social History Tobacco Use Types Packs/Day Years [...] on filedocumented in this encounter Care Teams Gas Welder Apprentice Relationship Specialty Start Date End Date Cooper Acevedo MD [address] [place] [address] PCP - General 11/09/17 documented as of this encounter
--- OUTSIDE RECORDS SUMMARY | 2024-10-02 19:16 | XMS_ITS | Clinical Summary ---
Author Organization [facility] Address [address] [place] [address] Phone Care Team Providers Care Business Services Administrator Name Role Phone Cooper Acevedo MD Primary Care Provider [phone] Allergies No known active allergies Medications Clindamycin [...] complete this topic Procedures * Due to [place] Victiv law, this organization might not be sharing sensitive test results. Procedure Name Priority Date/Time Associated Diagnosis Comments CHLAMYDIA AND GONORRHEA, AMPLIFIED Routine 12/21/2018 4:56 PM EDT Well adult exam from Last 3 Months or Most Recently Relevant to Health Maintenance Results * Due to [place] Victiv law, this organization might not be sharing sensitive test results. * Chlamydia and Gonorrhea, Amplified (12/21/2018 4:56 PM EDT) Chlamydia Trachomatis, DNA Probe NEGATIVE (NEG) [facility] Comment: No Chlamydia Trachomatis RNA detected in this patient's sample ? (REFERENCE RANGE/NORMAL VALUE: NOT DETECTED) ? Note: This test uses medical technicians- mediated amplification method to detect rRNA from C. Trachomatis URINE GC AMP PROBE NEGATIVE (NEG) [facility] Comment: No Neisseria Gonorrhoeae RNA detected in this patient's sample ? (REFERENCE RANGE/NORMAL VALUE: NOT DETECTED) ? NOTE: This test uses medical technicians-mediated amplification method to detect rRNA from N.Gonorrhoeae. [...] without risk of sexual abuse. Consult the [facility] if needed. Contact phone number . Therapeutic failure or success cannot be determined with the Aptima Combo2 assay since nucleic acid may persist following appropriate antimicrobial therapy. The Centers for Disease Control and Prevention (CDC) recommends confirmatory retesting using culture or a different nucleic acid amplification test when positive results occur, if indicated. Testing performed or reported by [facility], a Service of [facility], [address] [place] [address] Urine 12/21/2018 4:56 PM EDT 12/21/2018 11:19 PM EDT us Ana Rosa Parekh DO LAB MICROBIOLOGY - GENERAL ORDE MIKEL Final Result [facility] from Last 3 Months or Most Recently Relevant to Health Maintenance Insurance [facility] [place] [id number] Care Teams Business Services Administrator Relationship Specialty Start Date End Date Cooper Acevedo MD [address] [place] [address] [place] [address] PCP - General 11/09/17
== END 2024-10-02 19:10 | disposition home or self-care (01) ==
LOC: HO.MRI 19:09
PROVIDERS: PCP Physician Assistant Medical; Visit Provider Physician Assistant Medical
DX: S89.90XA Unspecified injury of unspecified lower leg, initial encounter (principal); M25.561 Pain in right knee; R93.6 Abnormal findings on diagnostic imaging of limbs
CPT/HCPCS: 73721

== ENCOUNTER → 2024-10-02 19:09 | Outpatient (BNV) | payer OTHER, SELFPAY | PROVIDERS: PCP Physician Assistant Medical; Visit Provider Radiology Neuroradiology | DX: M22.2X1 Patellofemoral disorders, right knee (principal) | CPT/HCPCS: 73721 ==

== ENCOUNTER 2024-10-11 13:54 | Outpatient (REF) | payer OTHER, SELFPAY ==
--- NOTE | ~2024-10-11 | XR_ITS ---
CLINICAL HISTORY: M25.561 - Pain in right knee Maunie view of the right knee. COMPARISON: XR right knee dated 09/23/24 at 08:51 EDT FINDINGS: Single sunrise view of the right knee was obtained. Visualized portions of the patella appear intact. Patella appears appropriately seated within the trochlear groove. Trochlear depth of 6 mm, normal. Normal patellar tilt of 6 degrees. Patellofemoral joint space is maintained. Visualized portions of the distal femur appears intact. IMPRESSION: 1. Normal sunrise view of the right knee. This document has been electronically signed by: Janak Ibarra MD on 10/12/2024 15:23:02
--- OUTSIDE RECORDS SUMMARY | 2024-10-12 14:18 | XMS_ITS | Encounter Summary ---
Author Organization [facility] Address [address] [place] [address] Phone Care Team Providers Care Management Assistant Name Role Phone Cooper Acevedo MD Primary Care Provider [phone] Encounter Details Date Type Department Care Team (Late st Contact Info) Description 08/10/2012 Conversion Encounter [facility] [address] [place] [address] Social History Tobacco Use Types Packs/Day Years [...] on filedocumented in this encounter Care Teams Management Assistant Relationship Specialty Start Date End Date Cooper Acevedo MD [facility] [place] [address] PCP - General 11/09/17 documented as of this encounter
--- OUTSIDE RECORDS SUMMARY | 2024-10-12 14:18 | XMS_ITS | Clinical Summary ---
Author Organization [facility] Address [address] [place] [address] Phone Care Team Providers Care Residence Hall Director Name Role Phone Cooper Acevedo MD Primary Care Provider [phone] Allergies No known active allergies Medications Clindamycin [...] topic Procedures * Due to [place] [employer] law, this organization might not be sharing sensitive test results. Procedure Name Priority Date/Time Associated Diagnosis Comments CHLAMYDIA AND GONORRHEA, AMPLIFIED Routine 12/21/2018 4:56 PM EDT Well adult exam from Last 3 Months or Most Recently Relevant to Health Maintenance Results * Due to [place] [employer] law, this organization might not be sharing sensitive test results. * Chlamydia and Gonorrhea, Amplified (12/21/2018 4:56 PM EDT) Chlamydia Trachomatis, DNA Probe NEGATIVE (NEG) [facility] Comment: No Chlamydia Trachomatis RNA detected in this patient's sample ? (REFERENCE RANGE/NORMAL VALUE: NOT DETECTED) ? Note: This test uses accounting auditor- mediated amplification method to detect rRNA from C. Trachomatis URINE GC AMP PROBE NEGATIVE (NEG) [facility] Comment: No Neisseria Gonorrhoeae RNA detected in this patient's sample ? (REFERENCE RANGE/NORMAL VALUE: NOT DETECTED) ? NOTE: This test uses accounting auditor-mediated amplification method to detect rRNA from N.Gonorrhoeae. [...] without risk of sexual abuse. Consult the [facility] if needed. Contact phone number . Therapeutic failure or success cannot be determined with the Aptima Combo2 assay since nucleic acid may persist following appropriate antimicrobial therapy. The Centers for Disease Control and Prevention (CDC) recommends confirmatory retesting using culture or a different nucleic acid amplification test when positive results occur, if indicated. Testing performed or reported by [facility], a Service of [facility], [address] [place] [address] Urine 12/21/2018 4:56 PM EDT 12/21/2018 11:19 PM EDT us Ana Rosa Parekh DO LAB MICROBIOLOGY - GENERAL ORDE MIKEL Final Result [facility] from Last 3 Months or Most Recently Relevant to Health Maintenance Insurance [facility] [place] [phone] Care Teams Residence Hall Director Relationship Specialty Start Date End Date Cooper Acevedo MD [address] [place] [address] [place] [address] PCP - General 11/09/17
== END 2024-10-11 13:55 | disposition home or self-care (01) ==
LOC: HO.HOSX 13:54
PROVIDERS: Visit Provider Physician Assistant
DX: M25.561 Pain in right knee (principal)
CPT/HCPCS: 73560

== ENCOUNTER 2024-10-11 14:59 | Outpatient (AMB) | payer OTHER, SELFPAY ==
[2024-10-11 15:07] VITALS: BMI 22.1
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
--- OUTSIDE RECORDS SUMMARY | 2024-10-11 17:32 | XMS_ITS | Clinical Summary ---
Author Organization [facility] Address [address] [place] [id number] Phone Care Team Providers Care Visual Stylist Name Role Phone Cooper Acevedo MD Primary Care Provider [phone] Allergies No known active allergies Medications Clindamycin [...] complete this topic Procedures * Due to [place] [employer] law, this organization might not be sharing sensitive test results. Procedure Name Priority Date/Time Associated Diagnosis Comments CHLAMYDIA AND GONORRHEA, AMPLIFIED Routine 12/21/2018 4:56 PM EDT Well adult exam from Last 3 Months or Most Recently Relevant to Health Maintenance Results * Due to [place] law, this organization might not be sharing sensitive test results. * Chlamydia and Gonorrhea, Amplified (12/21/2018 4:56 PM EDT) Chlamydia Trachomatis, DNA Probe NEGATIVE (NEG) [facility] Comment: No Chlamydia Trachomatis RNA detected in this patient's sample ? (REFERENCE RANGE/NORMAL VALUE: NOT DETECTED) ? Note: This test uses electronic sales and service technician- mediated amplification method to detect rRNA from C. Trachomatis URINE GC AMP PROBE NEGATIVE (NEG) [facility] Comment: No Neisseria Gonorrhoeae RNA detected in this patient's sample ? (REFERENCE RANGE/NORMAL VALUE: NOT DETECTED) ? NOTE: This test uses electronic sales and service technician-mediated amplification method to detect rRNA from N.Gonorrhoeae. [...] without risk of sexual abuse. Consult the [facility] if needed. Contact phone number . Therapeutic failure or success cannot be determined with the Aptima Combo2 assay since nucleic acid may persist following appropriate antimicrobial therapy. The Centers for Disease Control and Prevention (CDC) recommends confirmatory retesting using culture or a different nucleic acid amplification test when positive results occur, if indicated. Testing performed or reported by [facility], a Service of [facility], [address] [place] [address] Urine 12/21/2018 4:56 PM EDT 12/21/2018 11:19 PM EDT us Ana Rosa Parekh DO LAB MICROBIOLOGY - GENERAL ORDE MIKEL Final Result [facility] from Last 3 Months or Most Recently Relevant to Health Maintenance Insurance [facility] [id number] Care Teams Visual Stylist Relationship Specialty Start Date End Date Cooper Acevedo MD [address] [place] [address] [place] [address] PCP - General 11/09/17
--- OUTSIDE RECORDS SUMMARY | 2024-10-11 17:32 | XMS_ITS | Encounter Summary ---
Author Organization [facility] Address [address] [place] [address] Phone Care Team Providers Care Precast Concrete Ironworker Name Role Phone Cooper Acevedo MD Primary Care Provider [phone] Encounter Details Date Type Department Care Team (Late st Contact Info) Description 08/10/2012 Conversion Encounter [facility] [address] [place] [address] Social History Tobacco Use Types Packs/Day Years [...] on filedocumented in this encounter Care Teams Precast Concrete Ironworker Relationship Specialty Start Date End Date Cooper Acevedo MD [facility] [place] [address] PCP - General 11/09/17 documented as of this encounter
== END 2024-10-11 15:55 | disposition home or self-care (01) ==
LOC: HO.HOS 15:00
PROVIDERS: PCP Internal Medicine; Visit Provider Physician Assistant
DX: M22.41 Chondromalacia patellae, right knee (principal)
CPT/HCPCS: 99203

== ENCOUNTER → 2024-10-11 15:02 | Outpatient (BNV) | payer OTHER, SELFPAY | PROVIDERS: Visit Provider Radiology Diagnostic Radiology | DX: M25.561 Pain in right knee (principal) | CPT/HCPCS: 73560 ==

== ENCOUNTER 2024-10-26 09:30 | Outpatient (AMB) | payer OTHER, SELFPAY ==
--- NOTE | 2024-10-26 09:41 | A.OFFPC_ITS ---
Vital Signs 10/26/24 09:57 Height 5 ft 6 in Weight 130 lb BMI 21.0 BP 116/70 Respiration 14 Pulse 70 Pulse Source Pulse Oximeter Temp 97.5 F Temp Source Temporal Artery Scan Pulse Oximetry (%) 99 Oxygen Delivery Method Room Air Intake Visit Reasons: 1 month f/u Corrections Lieutenant Required: No Accompanied by: Self / Same As Patient Allergies sulfamethoxazole [From Bactrim] Allergy (Verified 10/26/24 10:14) Rash trimethoprim [From Bactrim] Allergy (Verified 10/26/24 10:14) Rash Medication List - Last Reconciled 10/26/24 by Chata Burleson PA-C No Known Home Meds Tobacco use date assessed: 10/26/24 Dental Screening Dental Screen Date: 10/26/24 Did you have a dental visit in the last 12 months?: Yes Did you have a dental problem in the last 6 months where you did not have access to dental care?: No Was dental information given to patient?: Patient has dentist HPI 1 month f/u HPI Details The patient is a 24-year-old female presenting with follow-up concerns regarding suspected hereditary hemochromatosis and knee pain. Hereditary hemochromatosis suspicion arose from iron studies, with familial links to the condition through maternal lineage. Family members have managed high iron levels with phlebotomy. The patient did not previously know of her carrier status. In addressing her musculoskeletal complaint, she has begun physical therapy for knee pain, initiated one day ago, with plans for bi-weekly sessions. The patient's MRI on 10/02/2024 of her right knee reveals Mild lateral positioning of the patella as can be associated with patellofemoral tracking syndrome. Social History - Exercise: Participating in physical [employer] sessions twice weekly. - Family: Has family members who are car riers of hereditary hemochromatosis; one family member had the disease. [facility] Medical History (Updated 10/26/24 @ 10:27 by Chata Burleson PA-C) Right knee injury Family history of hemochromatosis Iron overload Elevated ferritin Right knee pain IUD (intrauterine device) in place History of cyst of breast Establishing care with new doctor, encounter for Atypical syncope Abnormal x-ray of knee Knee injury Family History (Updated 10/26/24 @ 10:02 by PARISH Diaz) Father No problems noted. 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 1. Little interest or pleasure in doing things: not at all 2. Feeling down, depressed, or hopeless: not at all 3. Trouble falling or staying asleep, or sleeping too much: not at all 4. Feeling tired or having little energy: not at all 5. Poor appetite or overeating: not at all 6. Feeling bad about yourself - or that you are a failure or have let yourself or your family down: not at all 7. Trouble concentrating on things, such as reading the newspaper or watching television: not at all 8. Moving or speaking so slowly that other people could have noticed. Or the opposite - being so fidgety or restless that you have been moving around a lot more than usual: not at all 9. Thoughts that you would be better off or of hurting yourself in some way: not at all Total score: 0 Depression Screening Interpretation: Negative Depression Screening Done: Yes 23319 - PHQ-9 Billing: Yes Source: Developed by Drs. Juan Bro, Monica Junior, Stone Ortiz and colleagues, with an educational yusuf from [employer]. Thrive Questionnaire Date Thrive assessed: 10/26/24 I am a: Patient What is your living situation today?: I have a steady place to live Within the past 12 months, did the food you bought not last and you didn't have the money to get more?: Never true Within the past 12 months, did you worry whether your food would run out before you got money to buy more?: Never true Do you have trouble paying for medicines?: No Do you have trouble getting transportation to medical appointments?: No Do you have trouble paying your heating and electricity bill?: No Do you have trouble taking care of your child, family member or friend?: No Do you have trouble with day-to-day activities such as bathing, preparing meals, shopping, managing finances, etc.?: No Are you currently unemployed and looking for a job?: No Are you interested in more education?: No Please select the resources that you would like help with: None THRIVE Score: 0 AUDIT C Alcohol Use Questionnaire (AUDIT-C) 1. How often do you have a drink containing alcohol?: 2-3 times a week 2. How many drinks containing alcohol do you have on a typical day when you are drinking?: 1 or 2 3. How often do you have six or more drinks on one occasion?: Never Total Score: 3 Score Reviewed/Action Taken: No LESVIA-7 AMB Questionnaire LESVIA-7 Date LESVIA - 7 assessed: 10/26/24 Feeling nervous, anxious, or on edge: 0 = Not at all Not being able to stop or control worryin = Not at all Worrying too much about different things: 0 = Not at all Trouble relaxin = Not at all Being so restless that it is hard to sit still: 0 = Not at all Becoming easily annoyed or irritable: 0 = Not at all Feeling afraid as if something awful might happen: 0 = Not at all Total LESVIA-7 score (0-4 normal; 5-9 mild; 10-14 moderate; 15-21 severe): 0 Source: Developed by Drs. Juan Bro, Monica Junior, Stone Ortiz and colleagues, with an educational yusuf from [employer]. LESVIA-7 Assessment Billing LESVIA-7 Assessment Tool: LESVIA-7 Assessment 19344 Review of Systems Const Details: - Musculoskeletal: Reports knee pain; Denies other joint issues. - Hematologic: Reports family history of hereditary hemochromatosis. Physical exam (Primary Care) Vital Signs: Last Vital Signs Temp 97.5 F 10/26/24 09:57 Pulse 70 10/26/24 09:57 Resp 14 10/26/24 09:57 BP 116/70 10/26/24 09:57 Pulse Ox 99 10/26/24 09:57 Oxygen Delivery Method Room Air 10/26/24 09:57 Care Plan Goal for BP management: <130/90 at Goal BMI result Body Mass Index 21.0 normal bmi Tobacco/Smoking Status: Tobacco use Status Tobacco use date assessed 10/26/24 10/26/24 10:03 Patient Tobacco Use Status Never used Tobacco 10/26/24 10:02 e-Cigarette/Vaping Use Never Used 10/26/24 10:02 PHQ-9: PHQ-9 Score PHQ-9: Total score 0 10/26/24 10:03 Depression Screening Interpretation: Negative Thrive Assessment: Date of Thrive Assessment Date Thrive assessed 10/26/24 10/26/24 10:03 Const Other: Appearance: Alert. Oriented X3. No acute distress. Head: Normal external exam. Normocephalic. Atraumatic. Eyes: Pupils are equal, round, and reactive to light. Extraocular movements intact. Conjunctiva and sclera normal. Eyelids normal. Ears: External auditory canal normal. Tympanic membranes normal. Throat: Pharynx normal. Uvula midline. Moist mucous membranes. Neck: Normal inspection. Neck supple. Full range of motion. Cardiovascular: Normal heart rate and rhythm. Respiratory: No respiratory distress. Painless inspiration. Back:Full range of motion noted. Skin: Skin warm and dry. Normal skin color. Normal skin turgor. No rashes/lesions/lacerations noted. Extremities: Extremities exhibit normal range of motion. Results Reviewed Results Reviewed: - Labs: Iron studies indicating possible hereditary hemochromatosis. Coding Level of Care Code Est Pt Level 3 (64441) Complex EM visit Add On G2211 Diagnoses Right knee injury S89.91XA Family history of hemochromatosis Z83.49 Elevated ferritin R79.89 Iron overload E83.19 Additional Codes PHQ-9 - 07701 - PHQ-9 Billing: Yes ([id number]) LESVIA-7 Assessment Billing - LESVIA-7 Assessment Tool: LESVIA-7 Assessment 01664 ([id number]) Assessment & Plan Assessment & Plan (1) Right knee injury: Code(s): S89.91XA - Unspecified injury of right lower leg, initial encounter Category: Medical Plan: Condition is new unstable will continue to monitor. (2) Family history of hemochromatosis: Code(s): Z83.49 - Family history of other endocrine, nutritional and metabolic diseases Category: Medical Plan: Patient awaiting call from Oncology/Hematology for further evaluation and management. Will continue to monitor. (3) Elevated ferritin: Code(s): R79.89 - Other specified abnormal findings of blood chemistry Category: Medical Plan: Condition is new and stable. Patient awaiting call from Oncology/Hematology for further evaluation and management. Will continue to monitor. (4) Iron overload: Code(s): E83.19 - Other disorders of iron metabolism Category: Medical Plan: Condition is new and stable. Patient awaiting call from Oncology/Hematology for further evaluation and management. Will continue to monitor. Plan Plan Patient was informed and verbally consented to the use of an ambient scribe for clinic note documentation during this visit. 1. Suspected Hereditary Hemochromatosis The patient needs to follow up with hematology/oncology to confirm the diagnosis and initiate treatment protocols. She has been advised to contact the specialist to facilitate an appointment. Future interventions may include regular monitoring of iron levels and phlebotomy if needed. 2. Knee Pain The patient started physical therapy sessions for knee pain, continuing twice weekly. The therapy aims to alleviate pain and improve knee functionality. I discussed with the patient the potential diagnosis of hereditary hemochromatosis based on recent iron studies and her family history. We reviewed the importance of follow-up with a cooler worker/oncologist for further evaluation and management, which could include regular phlebotomy if confirmed. Additionally, I addressed her ongoing knee pain, emphasizing the start of physical therapy and the need to maintain regular sessions for maximum benefit. The patient expressed understanding of the plan and will make the necessary calls to secure appointments with specialists. Patient Instructions: - Follow up with hematology/oncology as soon as possible for further evaluation of suspected hereditary hemochromatosis. - Continue physical therapy sessions for knee pain twice a week. - Monitor for changes in symptoms and report any new concerns. - Contact the named specialist to schedule an appointment if not completed.
--- OUTSIDE RECORDS SUMMARY | 2024-10-26 09:42 | XMS_ITS | Clinical Summary ---
Author Organization [facility] Address [address] [place] [phone] Phone Care Team Providers Care Track Greaser Name Role Phone Cooper Acevedo MD Primary Care Provider [phone] Allergies No known active allergies Medications Clindamycin [...] complete this topic Procedures * Due to [place] [employer] law, this organization might not be sharing sensitive test results. Procedure Name Priority Date/Time Associated Diagnosis Comments CHLAMYDIA AND GONORRHEA, AMPLIFIED Routine 12/21/2018 4:56 PM EDT Well adult exam from Last 3 Months or Most Recently Relevant to Health Maintenance Results * Due to [place] [employer] law, this organization might not be sharing sensitive test results. * Chlamydia and Gonorrhea, Amplified (12/21/2018 4:56 PM EDT) Chlamydia Trachomatis, DNA Probe NEGATIVE (NEG) [facility] Comment: No Chlamydia Trachomatis RNA detected in this patient's sample ? (REFERENCE RANGE/NORMAL VALUE: NOT DETECTED) ? Note: This test uses overhead crane truck loader- mediated amplification method to detect rRNA from C. Trachomatis URINE GC AMP PROBE NEGATIVE (NEG) [facility] Comment: No Neisseria Gonorrhoeae RNA detected in this patient's sample ? (REFERENCE RANGE/NORMAL VALUE: NOT DETECTED) ? NOTE: This test uses overhead crane truck loader-mediated amplification method to detect rRNA from N.Gonorrhoeae. [...] without risk of sexual abuse. Consult the [facility] if needed. Contact phone number . Therapeutic failure or success cannot be determined with the Aptima Combo2 assay since nucleic acid may persist following appropriate antimicrobial therapy. The Centers for Disease Control and Prevention (CDC) recommends confirmatory retesting using culture or a different nucleic acid amplification test when positive results occur, if indicated. Testing performed or reported by [facility], a Service of [facility], [address] [place] [address] Urine 12/21/2018 4:56 PM EDT 12/21/2018 11:19 PM EDT us Ana Rosa Parekh DO LAB MICROBIOLOGY - GENERAL ORDE MIKEL Final Result [facility] from Last 3 Months or Most Recently Relevant to Health Maintenance Insurance [facility] [place] [id number] Care Teams Track Greaser Relationship Specialty Start Date End Date Cooper Acevedo MD [address] [place] [address] [place] [address] PCP - General 11/09/17
--- OUTSIDE RECORDS SUMMARY | 2024-10-26 09:42 | XMS_ITS | Encounter Summary ---
Author Organization [facility] Address [address] [place] [address] Phone Care Team Providers Care High Pressure Operator Name Role Phone Cooper Acevedo MD Primary Care Provider [phone] Encounter Details Date Type Department Care Team (Late st Contact Info) Description 08/10/2012 Conversion Encounter [facility] [address] [place] [address] [place] [address] Social History Tobacco Use Types Packs/Day Years [...] on filedocumented in this encounter Care Teams High Pressure Operator Relationship Specialty Start Date End Date Cooper Acevedo MD [address] [place] [address] [place] [address] PCP - General 11/09/17 documented as of this encounter
[2024-10-26 09:57] VITALS: BP 116/70; PULSE 70; RESP 14; TEMP 36.4; O2SAT 99; BMI 21.0
== END 2024-10-26 10:53 | disposition home or self-care (01) ==
PROVIDERS: PCP Physician Assistant Medical; Visit Provider Physician Assistant Medical
DX: S89.91XA Unspecified injury of right lower leg, initial encounter (principal); Z83.49 Family history of other endocrine, nutritional and metabolic diseases; R79.89 Other specified abnormal findings of blood chemistry; E83.19 Other disorders of iron metabolism

== ENCOUNTER → 2024-10-26 09:30 | Outpatient (BNVA) | payer OTHER, SELFPAY | PROVIDERS: PCP Physician Assistant Medical; Visit Provider Physician Assistant Medical | DX: S89.91XA Unspecified injury of right lower leg, initial encounter (principal); R79.89 Other specified abnormal findings of blood chemistry; E83.19 Other disorders of iron metabolism; Z83.49 Family history of other endocrine, nutritional and metabolic diseases; X58.XXXA Exposure to other specified factors, initial encounter; Y93.9 Activity, unspecified; Y92.9 Unspecified place or not applicable; Y99.9 Unspecified external cause status | CPT/HCPCS: 96127 ==

== ENCOUNTER 2024-11-27 15:00 | Outpatient (RCR) | payer OTHER, SELFPAY ==
--- NOTE | 2024-10-25 11:17 | MHC.PT.EP ---
[facility] [place] [facility] [place] [facility] [address] Cheng Bradshaw [address] [phone] F: [phone] F: [phone] F: [phone] F: [phone] Physical Therapy Plan of Care Date of Evaluation: 10/25/24 Date of Surgery: n/a Diagnosis: chondromalacia of R patella Assessment: Patient is a 24 year old female presenting to PT with complaints of pain in her R knee. Pt reports onset of pain began 09/17/2024 due to running. She presents today with impairments in pain, muscle length, strength, proprioception with functional activities. 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 Pt expresses senior living goal of reducing pain, and is motivated to work towards this in PT. Clinical presentation today is most consistent with signs and sx associated with R knee pain and pt will benefit from skilled PT 2 week x 4 weeks to address the following problems and impairments noted upon evaluation: pain, muscle length, strength, proprioception with functional activities. These problems limit the patient with the following functional activities: ambulating, running, stair negotiation, squatting, kneeling. The prescribed treatment plan of care is medically necessary. Co-morbidities of none were identified and taken into considerations of plan of care. Pt was educated on HEP, role of PT, prognosis, POC. Frequency and Duration: The patient will be seen 2 x week x 4 weeks Short Term Goals: Pt will demonstrate negative terry and obers muscle length test in 2 weeks. Pt will demonstrate improved hip MMT strength by 1/3 grade in 2 weeks. Pt will demonstrate ability to perform SLS on foam x 30 sec with min to no sway in 2 weeks. Shelter Goals: Pt will demonstrate improved LEFI score by 9 points in 4 weeks for improved functional mobility. Pt will demonstrate ability to ambulate with min to no pain in 4 weeks for return to PLOF. Pt will demonstrate ability to negotiate stairs with min to no pain in 4 weeks for improved access to her home. Treatment Plan: Modalities to reduce pain, spasms and effusion. Manual therapy to restore motion and function. Therapeutic exercise to improve strength and flexibility. Neuromuscular re-education for posture and balance. Therapeutic activities to return to functional activities of daily living. Electronically signed by: Mame Parra, PT, DPT, ATC Please sign and return to therapist. Thank you for your referral.
--- NOTE | 2025-01-14 11:15 | MHC.PT.DC ---
[facility] [place] [facility] [place] [facility] [place] [facility] [address] Cheng Bradshaw [address] [phone] F: [phone] F: [phone] F: [phone] F: [phone] Physical Therapy Discharge Report Diagnosis: chondromalacia of R patella Date of Surgery: n/a Date of Evaluation: 10/25/24 Date of Discharge: 01/14/25 Treatments to Date: 5 Cancellations to Date: 4 No Shows to Date: 0 Discharge Status: Discharge Summary: Pt has not returned in > 30 days. Plan at last visit was to be d/c after 30 days if no new issues come up. Therefore we will d/c. Electronically signed by: Mame Parra, PT, DPT, ATC Please sign and return to therapist. Thank you for your referral.
== END 2025-01-14 11:15 | disposition home or self-care (01) ==
LOC: HO.PTCHIC 15:00
PROVIDERS: PCP Physician Assistant Medical; Visit Provider Physician Assistant
DX: M22.41 Chondromalacia patellae, right knee (principal)
CPT/HCPCS: 97110; 97112; 97140; 97161; 97530

== ENCOUNTER → 2024-12-05 15:39 | Outpatient (BNV) | payer OTHER, SELFPAY | PROVIDERS: PCP Physician Assistant Medical; Referring Provider Physician Assistant Medical; Visit Provider Internal Medicine | DX: E83.19 Other disorders of iron metabolism (principal) | CPT/HCPCS: 99204 ==